=== PATIENT | female | born 1990 ===

== ENCOUNTER 2019-03-01 18:29 | Emergency (ER) | payer OTHER ==
[2019-03-01 18:41] VITALS: BP 136/85
--- NOTE | 2019-03-01 19:42 | UC ---
Head Injury HPI - HPI Summary HPI Summary: PATIENT ARRIVES WITH CONCERNS THAT SHE MAY HAVE SUSTAINED A CONCUSSION. 2 NIGHTS AGO SHE WOKE UP TO USE THE RESTROOM AND FELL FORWARD STRIKING HER HEAD ON A WAITER/[employer] THAT WAS ON THE COUNTERTOP. NO LOC. THE NEXT NIGHT SHE AGAIN WOKE UP TO USE THE RESTROOM AND FELT HERSELF ABOUT TO FALL SO SHE LOWERED HERSELF TO THE FLOOR AND THEN STRUCK THE TOP OF HER HEAD ON THE TILE. AGAIN NO LOC. PATIENT TAKES XYREM EVERY NIGHT FOR SLEEP DUE TO HER DIAGNOSIS OF NARCOLEPSY. SHE IS ALSO A TYPE I DIABETIC AND HAS BEEN DIAGNOSED WITH FIBROMYALGIA WELL. SHE REPORTS SHE IS NOT AT ALL CONCERNED ABOUT ANY UNDERLYING REASON FOR HER FALLS OTHER THAN THE XYREM. SHE IS NOT WORRIED ABOUT HER SUGAR OR ANY OTHER MEDICATIONS. STATES SHE DOES NOT NORMALLY GET UP FROM BED WHEN SHE IS TAKING THE XYREM BUT THAT SHE REALLY NEEDED TO PEE. SHE ARRIVES WITH PERSISTENT HEADACHE AND DIZZINESS. NO NAUSEA OR VISUAL DISTURBANCES. HAS BEEN TREATED IN THE PAST FOR CONCUSSION AND POSTCONCUSSIVE SYNDROME. - History Of Current Complaint Chief Complaint: UCHeadInjury Stated Complaint: HEAD INJURY Time Seen by Provider: 03/01/19 18:35 Hx Obtained From: Patient Hx Last Menstrual Period: now Onset/Duration: Sudden Onset, Lasting Days, Still Present Severity Currently: Moderate Severity Initially: Moderate Pain Intensity: 7 Pain Scale Used: 0-10 Numeric Character: Dull Aggravating Factor(s): Nothing Alleviating Factor(s): Nothing Associated Signs And Symptoms: Negative: LOC (Time In Secs./Mins/Hrs), Confusion , Memory Loss, Seizure, Epistaxis, Neck Pain, Nausea - Allergies/Home Medications Allergies/Adverse Reactions: Allergies Allergy/AdvReac Type Severity Reaction Status Date / Time clarithromycin [From Biaxin] Allergy Vomiting Verified 03/01/19 18:43 gluten Allergy GI Upset Verified 03/01/19 18:43 Home Medications: Home Medications Atorvastatin* [Lipitor 20 MG*] 1 tab PO DAILY 03/01/19 [History Confirmed ] DULoxetine DR CAP* [Cymbalta CAP*] 1 tab PO DAILY 03/01/19 [History Confirmed ] Insulin Aspart [Novolog] 1 dose CONT SUBCU DAILY 03/01/19 [History Confirmed ] Sodium Oxybate Xyrem 4.5 gm PO BID 03/01/19 [History Confirmed 03/01/19] Solriamfetol HCl [Sunosi] 1 tab PO DAILY 03/01/19 [History Confirmed 03/01/19] buPROPion HCl [Bupropion Xl] 1 tab PO DAILY 03/01/19 [History Confirmed 03/01/19 ] PMH/Surg Hx/FS Hx/Imm Hx - Additional Past Medical History Additional PMH: FIBROMYALGIA, NARCOLEPSY, LEARNING DISORDER Endocrine History: Diabetes - TYPE I - Surgical History Surgical History: Yes Surgery Procedure, Year, and Place: RIGHT THUMB, STITCHES IN LIP AND SCAR TISSUE REMOVAL FROM LIP, WISDOM TEETH - Family History Known Family History: Positive: Non-Contributory - Social History Alcohol Use: Occasionally Substance Use Type: Prescribed Smoking Status (MU): Never Smoked Tobacco Review of Systems All Other Systems Reviewed And Are Negative: Yes Constitutional: Positive: Negative Skin: Positive: Negative Eyes: Positive: Negative Respiratory: Positive: Negative Cardiovascular: Positive: Negative Gastrointestinal: Positive: Negative Neurological: Positive: Headache, Other - DIZZY Psychological: Positive: Anxious, Other - TEARFUL Physical Exam Triage Information Reviewed: Yes Appearance: Well-Appearing, No Pain Distress, Well-Nourished Vital Signs: Initial Vital Signs Temp 98.3 F 03/01/19 18:33 Pulse 121 03/01/19 18:33 Resp 16 03/01/19 18:33 BP 136/85 03/01/19 18:33 Pulse Ox 98 03/01/19 18:33 Vital Signs Reviewed: Yes Eyes: Positive: Conjunctiva Clear ENT: Positive: Hearing grossly normal, Pharynx normal, TMs normal. Negative: Nasal congestion, Nasal drainage Neck: Positive: Supple, Nontender, No Lymphadenopathy Respiratory Exam: Normal Cardiovascular: Positive: Tachycardia Abdomen Description: Positive: Soft Musculoskeletal: Positive: No Edema Neurological: Positive: Alert, Muscle Tone Normal, Other: - CN II-XII GROSSLY INTACT BILATERALLY. RAPID ALTERNATING MOVEMENTS INTACT. NEG PRONATOR DRIFT. NEG ROMBERG. 5/5 STRENGTH. HEEL TO EATON INTACT BILATERALLY. TANDEM GAIT INTACT. FINGER TO NOSE INTACT. Psychological: Positive: Age Appropriate Behavior, Other: - ANXIOUS, EMOTIONALLY LABILE, TEARFUL Skin: Positive: Other - 2CM AREA OF ERYTHEMA FRONT OF SCALP. Negative: Rashes Head Injury Course/Dx - Course Course Of Treatment: PATIENT PRESENTS AFTER FALLS AND HEAD INJURY WITH PERSISTENT HEADACHE AND DIZZINESS. PRESENTATION CONSISTENT WITH CONCUSSION. PATIENT CARRIES A DIAGNOSIS OF DM TYPE I, NARCOLEPSY AND FIBROMYALGIA AND TAKES MULTIPLE SAMPLE TAILOR DEPRESSANT MEDICATIONS. STATES THAT HER FALLS ARE DUE TO THE MEDICATION. I RECOMMENDED TRANSFER TO THE ER FOR FURTHER EVALUATION OF HER FALLS AND CONCUSSIVE SX BUT SHE DECLINES. SHE IS NOT AT ALL CONCERNED ABOUT ANY UNDERLYING ELECTROLYTE ABNORMALITY OR DISTURBANCE IN HER GLUCOSE LEVELS. WAS JUST HERE TO FIND OUT IF SHE HAD A CONCUSSION. I STRESSED TO THE PT THAT SHE SHOULD HAVE A LOW THRESHOLD FOR GOING TO THE ER IF HER SX PERSIST OR WORSEN. SHE VERBALIZES UNDERSTANDING AND CONTINUES TO DECLINE TRANSFER. - Differential Dx/Diagnosis Provider Diagnosis: Concussion Discharge ED - Sign-Out/Discharge Documenting (check all that apply): Patient Departure All imaging exams completed and their final reports reviewed: No Studies - Discharge Plan Condition: Stable Disposition: HOME Patient Education Materials: Concussion (ED) Referrals: [facility] [Outside] - 1 Week Moody Langston MD [Medical Doctor] - If Needed Additional Instructions: IN THE SETTING OF 2 RECENT HEAD INJURIES AND PERSISTENT HEADACHE AND DIZZINESS CLINICALLY YOU HAVE SUSTAINED A CONCUSSION. LIMIT SCREEN TIME AND AVOID ACTIVITIES THAT COULD RESULT IN ADDITIONAL HEAD INJURY. YOU NEED BOTH PHYSICAL AND COGNITIVE REST TO EXPEDITE RECOVERY. NO SPORTS FOR AT LEAST A WEEK. FOLLOW-UP WITH PCP IF SYMPTOMS ARE PERSISTENT AFTER 1 WEEK. GO TO THE ED WITHOUT FAIL IF YOU DEVELOP UNEQUAL PUPILS, VISUAL DISTURBANCE, GAIT INSTABILITY, SPEECH DIFFICULTY, NAUSEA/VOMITING, WORSENING HEADACHE, DIZZINESS, CONFUSION, WEAKNESS OR ANY OTHER CONCERNING SYMPTOMS. CALL THE NUMBER BELOW FOR ASSISTANCE IN ESTABLISHING WITH A PCP An additional resource available to assist in finding the appropriate physician for your health care needs is the [facility] ([facility]). You may contact them by calling [phone]. [facility] Address: [address] [place] [address] 8:30AM-4:30PM [facility] [phone] (M-F 8AM-4PM) [email or web address] (FOR HELP, INFO OR TO CONNECT WITH A SUPPORT GROUP) [facility] [place] [facility] - Billing Disposition and Condition Condition: STABLE Disposition: Home
[2019-03-01] MEDS ORDERED: Ibuprofen TAB* 600 MG PO ONE (20:33)
[2019-03-01] MEDS ORDERED: Acetaminophen TAB* 325 MG PO ONE (20:33)
== END 2019-03-01 20:01 | disposition home or self-care (01) ==
LOC: UCEAST 18:29
DX: S06.0X0A Concussion without loss of consciousness, initial encounter (principal); G47.419 Narcolepsy without cataplexy; E10.9 Type 1 diabetes mellitus without complications; F81.9 Developmental disorder of scholastic skills, unspecified; M79.7 Fibromyalgia; Z91.018 Allergy to other foods; Z79.4 Long term (current) use of insulin; Z88.1 Allergy status to other antibiotic agents; Z79.899 Other long term (current) drug therapy; W22.8XXA Striking against or struck by other objects, initial encounter; W18.39XA Other fall on same level, initial encounter; Y92.9 Unspecified place or not applicable; Y93.89 Activity, other specified
CPT/HCPCS: 99211; A9270-GY; G0463